=== PATIENT | female | born 1995 | race Caucasian/White ===

== ENCOUNTER 2020-11-06 12:39 | Emergency (ER) | payer BC, SELFPAY ==
[~2020-11-06] VITALS: Ht 157.5 cm; Wt 108.9 kg
[2020-11-06 12:47] VITALS: BP 120/77; Ht 157.5 cm; Wt 108.9 kg
== END 2020-11-06 16:12 | disposition home or self-care (01) ==
LOC: ED 12:39
DX: B34.9 Viral infection, unspecified (principal); F41.9 Anxiety disorder, unspecified; Z20.828 Contact with and (suspected) exposure to other viral communicable diseases
CPT/HCPCS: Q0162; U0003